=== PATIENT | female | born 1950 | race Caucasian/White ===

== ENCOUNTER → 2021-02-18 | Emergency (ER) | payer MEDICARE ==
[~2021-02-18] VITALS: Ht 165.1 cm; Wt 57.5 kg
[~2021-02-18] MED LIST: CLIN150C2 PO
[2021-02-18 12:11] VITALS: BP 140/76
== END | disposition home or self-care (01) ==
LOC: ER 11:07
DX: R04.2 Hemoptysis (principal); K04.7 Periapical abscess without sinus
CPT/HCPCS: 99283